=== PATIENT | male | born 1975 | race Caucasian/White ===

== ENCOUNTER 2025-08-23 12:53 | Emergency (ER) | payer OTHER, SELFPAY ==
[2025-08-23 13:04] VITALS: BP 130/84; PULSE 67; RESP 15; TEMP 36.9; O2SAT 95; BMI 29.0
[2025-08-23 13:48] LABS: Add Manual Diff / Slide Review NO; Hematocrit 46.5 % (41-53); Hemoglobin 15.7 g/dL (13.5-17.5); Lymphocytes Absolute Auto 2300 /uL (1100-4500); Mean Corpuscular HGB Conc 33.8 % (30-36); Mean Corpuscular Hemoglobin 28.4 PG (26-34); Mean Corpuscular Volume 84.1 fL (80-100); Platelet Count 274 X10^3/uL (150-400)
[2025-08-23 13:53] LABS: Alanine Aminotransferase 43 IU/L (<50); Albumin 5.0 g/dL (3.5-5.0); Albumin Globulin Ratio 1.5 (1.0-2.8); Alkaline Phosphatase 95 U/L (38-126); Blood Urea Nitrogen 13 mg/dL (9-20); Calcium 9.4 mg/dL (8.4-10.2); Carbon Dioxide 27 mmol/L (22-32); Chloride 103 mmol/L (98-107); Estimated Glomerular Filt Rate > 60 mL/min (>60); Globulin 3.4 g/dL (1.7-4.1); Glucose 98 mg/dL (70-99); HEMOLYSIS < 15 (0-50); Lipase 126 U/L (23-300); Potassium 4.0 mmol/L (3.4-5.1); Sodium 139 mmol/L (137-145); Total Protein 8.4 g/dL (6.3-8.2)
--- NOTE | 2025-08-23 15:49 | ED_ITS ---
HPI - Abdominal Pain General Chief Complaint: Abdominal Pain Stated Complaint: lower abd pain x 3wks Time Seen by Provider: 08/23/25 15:37 Source: patient Mode of arrival: Ambulatory History of Present Illness HPI narrative: 49-year-old male patient with a history of peripheral neuropathy and diverticulitis, who complains of left lower abdominal and pelvic pain and a feeling of swelling and discomfort in the left groin area.. He reports constipation 3 weeks ago but has improved with Mag citrate. He says eating and bowel movements make the pain worse. Related Data Previous Rx's ?Medication ?Instructions ?Recorded hydrocodone 5 mg-acetaminophen 325 1 tab PO Q6H PRN pa in #10 tabs 08/23/25 mg tablet Review of Systems Review of Systems ROS Unobtainable: All systems reviewed & are unremarkable except as noted in HPI and below Gastrointestinal Gastrointestinal: Reports as per HPI Patient History Social History Smoking Status: Never smoker Smoking Status: Never smoker Exam Narrative Exam Narrative: General: Alert and conversant. Mild distress. Appears well nourished and well hydrated Craniofacial: No evidence of trauma. Nontender and no swelling. Lungs: Clear to auscultation with good air movement. No wheezing, rales or rhonchi. No respiratory distress Cardiac: Regular rate and rhythm with no appreciable murmur or gallop Abdomen: Soft, nontender with no distention or masses. Normal bowel sounds. No rebound or guarding Genital/groin: Patient has a left inguinal hernia which is reducible. Otherwise normal genitalia. Musculoskeletal: Exam of the extremities, axial spine and ribcage reveals no deformity, bony tenderness or swelling. Range of motion intact Neuro: Alert and oriented. Cranial nerves, motor, sensory and cerebellar all grossly intact. No focal deficit Skin: Warm and normal color. No rashes Psychological: Normal affect and interaction. No evidence of delusion or psychosis. Normal mood. Initial Vital Signs Initial Vital Signs: Vital Signs Temperature 98.5 F 08/23/25 13:04 Pulse Rate 67 08/23/25 13:04 Respiratory Rate 15 08/23/25 13:04 Blood Pressure 130/84 08/23/25 13:04 Pulse Oximetry 95 08/23/25 13:04 Oxygen Delivery Method Room Air 08/23/25 13:04 Course Orders Ordered: ED Orders 08/23/25 13:38 EKG-12 Lead Stat Discontinued Medications Ondansetron HCl (Ondansetron 4 Mg/2 Ml Inj) 4 mg IV NOW PRN PRN Reason: Nausea And Vomiting Ondansetron HCl (Ondansetron 4 Mg Odt) 4 mg PO NOW PRN PRN Reason: Nausea And Vomiting Vital Signs Vital signs: Vital Signs - 8 hr 08/23/25 19:19 Pulse Rate 57 L Respiratory Rate 18 Blood Pressure 146/89 H Pulse Oximetry 99 Oxygen Delivery Method Room Air MDM - Abdominal Pain Lab Data Attestation: I reviewed the patient's lab results. 08/23/25 13:15 08/23/25 13:15 Labs: Lab Results 08/23/25 Range/Units 13:15 WBC 7.0 (4.5-11.0) X10^3/uL RBC 5.53 (4.5-5.9) X10^6/uL Hgb 15.7 (13.5-17.5) g/dL Hct 46.5 (41-53) % MCV 84.1 (80-100) fL MCH 28.4 (26-34) PG MCHC 33.8 (30-36) % RDW 14.1 (11.6-14.8) % Plt Count 274 (150-400) X10^3/uL Neut % (Auto) 59.0 (50-75) % Lymph % (Auto) 33.1 (25-40) % [place] % (Auto) 6.1 (3-14) % Eos % (Auto) 1.2 L (2-4) % Baso % (Auto) 0.6 (0-2) % Neut # (Auto) 4200 (7264-0913) /uL Lymph # (Auto) 2300 (3856-2384) /uL [place] # (Auto) 400 (0-900) /uL Eos # (Auto) 100 (0-450) /uL Baso # (Auto) 0 (0-100) /uL Sodium 139 (137-145) mmol/L Potassium 4.0 (3.4-5.1) mmol/L Chloride 103 (98-107) mmol/L Carbon Dioxide 27 (22-32) mmol/L BUN 13 (9-20) mg/dL Creatinine 1.09 (0.66-1.25) mg/dL Estimated GFR > 60 (>60) mL/min BUN/Creatinine Ratio 11.9 (6-22) Glucose 98 (70-99) mg/dL Calcium 9.4 (8.4-10.2) mg/dL Total Bilirubin 0.7 (0.2-1.3) mg/dL AST 34 (17-59) IU/L ALT 43 (<50) IU/L Alkaline Phosphatase 95 (38-126) U/L Total Protein 8.4 H (6.3-8.2) g/dL Albumin 5.0 (3.5-5.0) g/dL Globulin 3.4 (1.7-4.1) g/dL Albumin/Globulin Ratio 1.5 (1.0-2.8) Lipase 126 (23-300) U/L Point of care testing: Urine Dip Bedside Urine Glucose Negative Bedside Urine Bilirubin - Negative Bedside Urine Ketone - Negative Urine Specific [place] 1.010 Bedside Urine Occult Blood - Negative Bedside Urine pH 6.5 Bedside Urine Protein - Negative Bedside Urine Urobilinogen - Negative Bedside Urine Nitrite - Negative Bedside Urine Leukocytes - Negative Esterase MDM Narrative Medical decision making narrative: Patient has worsening left inguinal pain and bulge which is a confirmed reducible hernia on physical exam. There is no incarceration. Patient given instructions on managing the hernia with no excessive straining. Skwn-[id number]-[id number] and prescription pain medicine and follow up with General surgery. [facility] he was also given the name of our on-call surgeon, Dr. Plaza. Return to the ER for any worsening symptoms the might need immediate attention. Discharge Plan Departure Patient Disposition: Home Clinical Impression: Inguinal hernia of left side without obstruction or gangrene Instructions: Groin Hernia -- Adult Activity Restrictions/Additional Instructions: Plan: Avoid straining. Use whiz-adb-woebggo and prescription pain medicine. Follow up with General surgery within the next 2 weeks for consideration of surgical repair. Return to the ER if worse. Prescriptions: New hydrocodone-acetaminophen 5-325 mg tablet 1 tab PO Q6H PRN (Reason: pain) Qty: 10 0RF Referrals: Renato Plaza MD [Physician, General Surgery] Referral Note: Reducible left inguinal hernia causing pain. Evaluation for repair Clinical Impression: Inguinal hernia of left side without obstruction or gangrene Stand Alone Forms: Patient Portal/API
--- NOTE | 2025-08-23 18:04 | EKG_ITS ---
[facility] [address] [place] [address] Test Date: 2025-08-23 Pat Name: Dhruv Kaba Department: [facility] Room: Gender: Male Floor Nurse: ERI : 1975 Requested By: Order Number: [id number] Reading MD: Carlos Kaba Measurements Intervals [place] Rate: 46 P: 60 OR: 166 QRS: 52 QRSD: 74 T: 55 QT: 442 QTc: 386 Interpretive Statements Sinus bradycardia Electronically Signed On 08-24-2025 19:04:00 PST by Carlos Kaba
[2025-08-23 19:19] VITALS: BP 146/89; PULSE 57; RESP 18; O2SAT 99
== END 2025-08-23 19:10 | disposition home or self-care (01) ==
PROVIDERS: Emergency Medicine; Emergency Provider Emergency Medicine
DX: K40.90 Unilateral inguinal hernia, without obstruction or gangrene, not specified as recurrent (principal)
CPT/HCPCS: 80053; 81003; 83690; 85025; 93005; 99281; 99284